=== PATIENT | female | born 1965 | race Caucasian/White ===

== ENCOUNTER 2022-09-23 12:02 | Emergency (ER) | payer BC ==
[~2022-09-23] VITALS: Ht 149.9 cm; Wt 71.7 kg
[2022-09-23 12:41] VITALS: BP_SYST 127
[2022-09-23] MEDS ORDERED: MORPHINE 4 MG INJ. 4 MG/ML VIAL IVP ONE (22:45)
[2022-09-23] MEDS ORDERED: NACL 0.9% 1,000 ML IV ONE (22:45)
[2022-09-23] MEDS ORDERED: HYDROcodone/ACETAMIN 5-325 MG TAB (NORCO/ VICODIN) PO ONE (22:45)
[2022-09-24 00:01] LABS: BASOPHILS % (AUTO) 0.3 % (0.0-2.0); EOSINOPHILS # (AUTO) 0.1 K/uL (0.0-0.4); EOSINOPHILS % (AUTO) 1.7 % (0.0-4.0); HEMATOCRIT 37.4 % (36-48); HEMOGLOBIN 12.7 g/dL (12.0-16.0); LYMPHOCYTES # (AUTO) 1.3 K/uL (1.0-5.5); LYMPHOCYTES % (AUTO) 26.1 % (20.5-51.5); MEAN CORPUSCULAR HEMOGLOBIN 34 pg (27-31); MEAN CORPUSCULAR HGB CONC 34 % (32-36); MEAN CORPUSCULAR VOLUME 99 fL (79.0-98.0); MONOCYTES # (AUTO) 0.3 K/uL (0.0-1.0); MONOCYTES % (AUTO) 5.8 % (1.7-9.3); NEUTROPHILS # (AUTO) 3.4 K/uL (1.8-7.7); NEUTROPHILS % (AUTO) 66.1 % (40.0-70.0); PLATELET COUNT (AUTO) 106 K/uL (130-430); RED BLOOD CELL COUNT(AUTO) 3.79 MIL/uL (4.2-6.2); RED CELL DISTRIBUTION WIDTH 13.9 % (9.0-15.0); WHITE BLOOD COUNT (AUTO) 5.1 K/uL (4.8-10.8)
[2022-09-24] MEDS ORDERED: LIDO1ADH71 TD ×2 (01:38→03:24)
[2022-09-24] MEDS ORDERED: CYCL10TA24 PO ×2 (01:38→03:24)
[2022-09-24] MEDS ORDERED: IBUP-1969 PO ×2 (01:38→03:24)
[2022-09-24] MEDS ORDERED: KETOROLAC TROMETHAMINE 30 MG VIAL IVP ONE (01:45)
[2022-09-24] MEDS ORDERED: OXYCODONE/ACETAMINOPHEN 5-325 TABLET ONE (01:58)
[2022-09-24] MEDS ORDERED: HYDROcodone/ACETAMIN 5-325 MG TAB (NORCO/ VICODIN) PO ONE (02:15)
[2022-09-24 02:34] LABS: CALCIUM 9.1 mg/dL (8.4-11.0); CREATININE 0.68 mg/dL (0.55-1.30); TOTAL BILIRUBIN 0.6 mg/dL (0.0-1.0)
[2022-09-24 03:34] VITALS: BP_SYST 131
== END 2022-09-24 03:27 | disposition home or self-care (01) ==
LOC: SED 12:02
DX: S30.1XXA Contusion of abdominal wall, initial encounter (principal); R10.30 Lower abdominal pain, unspecified; Z88.0 Allergy status to penicillin; Z79.899 Other long term (current) drug therapy; V49.49XA Driver injured in collision with other motor vehicles in traffic accident, initial encounter; Y93.89 Activity, other specified; Y92.89 Other specified places as the place of occurrence of the external cause; Y99.8 Other external cause status
CPT/HCPCS: 99285; 70450; 96360; 80053; 85025; 36415; 71260; 72125; 74177; 76376; J7030; Q9967; J7042; J7120